=== PATIENT | male | born 1970 | race Caucasian/White ===

== ENCOUNTER → 2020-12-27 11:03 | Outpatient (CLI) | payer OTHER, SELFPAY ==
--- NOTE | ~2020-12-27 | CT_ITS ---
EXAMINATION: CTA chest PE protocol EXAM DATE: 12/27/2020 11:29 INDICATION: SOB, elevated D dimer . TECHNIQUE: Spiral CTA of the chest (pulmonary arteries) was performed with 100 cc Omnipaque 350 intr avenous contrast injection. Images were acquired during the pulmonary arterial phase. Coronal maxi mum intensity projection 3D-reconstructions were created by the technologist on dedicated workstation . Axial, coronal and sagittal reformatted images were reviewed. The dose-length product (DLP) for t his examination was 739.39 mGy-cm. The exposure was tailored according to patient size (auto mA exp osure control), and iterative reconstruction (ASIR) was used as additional dose reduction technique. There is no prior study for comparison. FINDINGS: There is loss of attenuation of a right lower lobe segmental pulmonary artery without evid ence of respiratory motion at this level. Small filling defects suspected in another subsegmental rig ht lower lobe pulmonary artery. No right heart strain. No thoracic aortic dissection. Left lung calc ified granuloma. There are no pleural or pericardial effusions. Tracheobronchial tree is patent. There is no mediastinal, hilar or axillary lymphadenopathy. There is no pneumothorax. Heart norm al in size. No evidence of coronary arterial calcification. Surgical changes from gastric bypass a nd cholecystectomy. There is thoracic spondylosis without osteoblastic or osteolytic lesions identif ied. Subcutaneous cystic lesion anterior to the manubrium probably sebaceous cyst. IMPRESSION: 1. Positive for right lower lobe segmental and subsegmental pulmonary emboli, low clot burden. 2. Clear lungs. I discussed this case with Sheron in the office of the ordering clinician Keena EliMD munoz t 12/27/2020 11:51 CDT. Reviewed, dictated and finalized at location B. IMPRESSION: 1. Positive for right lower lobe segmental and subsegmental pulmonary emboli, low clot burden. 2. Clear lungs. I discussed this case with Sheron in the office of the ordering clinician Earnest Hernandez*MD at 12/27/2020 11:51 CDT.
[2020-12-27 11:18] LABS: Estimated Glomerular Filt Rate > 60
== END ==
PROVIDERS: PCP Internal Medicine Geriatric Medicine; Visit Provider Internal Medicine Geriatric Medicine
DX: R06.02 Shortness of breath (principal); R79.89 Other specified abnormal findings of blood chemistry; I26.99 Other pulmonary embolism without acute cor pulmonale
CPT/HCPCS: 71275; Q9967

== ENCOUNTER 2022-10-12 07:37 | Outpatient (CLI) | payer OTHER, SELFPAY ==
--- NOTE | 2022-11-01 08:50 | WPDSLEEPSTUD ---
Sleep Study Date of Study: 10/12/22 Ordering Provider: Shirley Merritt MD Interpreting Physician: Shirley Merritt MD Sleep Study Type: Polysomnogram Height: 1.75 m Weight: 250.837 kg Body Mass Index: 81.6 Neck Circumference (inches): 18.75 [place]: 0 Reason for Sleep Study Obstructive sleep apnea, needs to qualify for new device * 11/26/2014- severe obstructive sleep apnea * ? 01/30/2015; CPAP titration, BMI is 63.7, weight is 430.1 lb. ? CPAP was started at 4 cm increased is 10 cm, switched to bilevel therapy as he had increased end-tidal CO2, increased more than 10 mm from baseline.? He had inspiratory pressures between 14 and 22, expiratory pressures between 10 and 15 cm.? The optimal pressure on this study was 19 cm/ 13 cm.? He had REM at this setting.? His residual apnea-hypopnea index was 1.4 and the lowest oxygen saturation was 85%. *? -? Auto PAP settings 11 cm to 15 cm; this was never comfortable and he was not able to use it successfully. Sleep History Lv Reinoso is a 51-year-old man with history of obstructive sleep apnea for over 20 years, has not use CPAP for the last 6 months due to poor fit especially poor mask fit. He was taking the mask off during the night and he found that he slept better without it than using it. He fell off his porch 15 years ago, was unconscious, and after this head injury had hypersomnia. This is managed with modafinil. He has restless legs syndrome and takes pramipexole 0.25 mg 2 tablets which helps significantly. He was scheduled for a split night study however did not meet criteria for PAP titration, so he had a basic PSG. He rarely awakens from sleep short of breath. He rarely awakens at night with heartburn, belching or coughing.??He frequently snores, never snores loudly enough that others complain. He frequently has trouble sleeping when he has a cold. He rarely wakes up gasping for breath during the night. He never has breathing problems at night witnessed by others. He never sweats excessively at night. He never notices his heart pounding or beating irregularly during the night. He never falls asleep during the day. He never falls asleep involuntarily and never falls asleep while driving. He never experiences loss of muscle tone with strong emotion. He never feels paralyzed on waking or falling asleep. He never experiences vivid dreams upon waking or falling asleep. He never feels afraid of going to sleep. He never has nightmares. He never recalls his dreams. He occasionally has thoughts racing through his mind. He constantly feels sad or depressed. He constantly feels anxiety or worry about things. He occasionally notices parts of his body jerk. He occasionally kicks during the night. He occasionally feels crawling or aching feelings in his legs. He never feels leg pain at night. He occasionally grinds his teeth, rarely has morning jaw pain. He frequently feels bothered by pain during the day and is occasionally awakened by pain during the night. He never wakes up feeling stiff, sore, or achy in the morning with pain in his neck, spine, or joints. Normal bedtime is around 10:00 p.m. usually falling asleep within 15 minutes. His wake up time is 5:00 a.m.. He wakes 1 or 2 times during the night for 10 minutes to urinate. He does not take naps in the afternoon or evening. A short nap is not refreshing. He feels better in the morning compared to other times of day. Habits:??Tobacco: Never Caffeine: 4-6 servings of caffeine, 12 oz each. Alcohol: none. Recreational substances: none PMFSH Past Medical History Medical History Anxiety Arthritis Cardiac arrhythmia Carpal tunnel syndrome Degenerative joint disease of cervical and lumbar spine Depression GERD (gastroesophageal reflux disease) History of frequent headaches Hypertension IBS (irritable bowel syndrome) PEG (percutaneous endoscopic gastrostomy) adjustme
[2022-11-01 09:22] VITALS: BMI 81.6
== END 2022-10-13 05:18 | disposition home or self-care (01) ==
PROVIDERS: PCP Internal Medicine Geriatric Medicine; Visit Provider Internal Medicine Critical Care Medicine
DX: G47.19 Other hypersomnia (principal); G47.9 Sleep disorder, unspecified; K21.9 Gastro-esophageal reflux disease without esophagitis; I10 Essential (primary) hypertension
CPT/HCPCS: 95810